=== PATIENT | female | born 1970 | race African-American/Black ===

== ENCOUNTER 2018-09-06 22:44 | Emergency (ER) | payer MEDICAID ==
[~2018-09-06] VITALS: Ht 180.3 cm; Wt 77.0 kg
[2018-09-06] MEDS ORDERED: OLANZAPINE 5MG TABLET ODT PO ONE (23:45)
[2018-09-06] MEDS ORDERED: LORAZEPAM 1MG TABLET PO ONE (23:45)
[2018-09-07 00:19] LABS: CLARITY URINE CLEAR (CLEAR); COLOR URINE YELLOW (YELLOW); KETONES URINE NEGATIVE (NEGATIVE); LEUKOCYTE ESTERASE URINE NEGATIVE (NEGATIVE); NITRITE URINE NEGATIVE (NEGATIVE); OCCULT BLOOD URINE NEGATIVE (NEGATIVE); PROTEIN URINE NEGATIVE (NEGATIVE); SPECIFIC GRAVITY URINE 1.007 (1.005-1.030)
[2018-09-07 00:38] LABS: *AMPHETAMINES SCREEN URINE NEGATIVE (NEGATIVE); *BARBITURATES SCREEN URINE NEGATIVE (NEGATIVE); *BENZODIAZEPINES SCREEN URINE NEGATIVE (NEGATIVE); METHADONE URINE SCREEN NEGATIVE (NEGATIVE); OPIATES URINE SCREEN NEGATIVE (NEGATIVE); PHENCYCLIDINE URINE SCREEN NEGATIVE (NEGATIVE)
[2018-09-07 00:42] LABS: *COCAINE SCREEN URINE PRESUMTIVE POSITIVE (NEGATIVE)
[2018-09-07 00:43] LABS: CANNABINOID URINE SCREEN PRESUMTIVE POSITIVE (NEGATIVE)
[2018-09-07 01:33] LABS: BASOPHILS % 0.7 % (0.0-2.0); EOSINOPHILS % 0.8 % (0.0-5.0); HEMATOCRIT. 33.4 % (36.0-48.0); LYMPHOCYTES % 19.1 % (20.0-50.0); MEAN CORPUSCULAR HEMOGLOBIN 32.3 pg (28.0-32.0); MEAN CORPUSCULAR VOLUME 98.4 fL (81.0-99.0); MONOCYTES % 13.9 % (2.0-8.0); NEUTROPHILS % 65.5 % (40.0-76.0); PLATELET 217 x1000/uL (130-400)
[2018-09-07 01:43] LABS: CHLORIDE 105 mEq/L (98-107)
[2018-09-07 01:48] LABS: ETHANOL BLOOD < 10 mg/dL; HCG SCREEN NEGATIVE
[2018-09-07] MEDS ORDERED: POTASSIUM CHLORIDE 20MEQ TABLET SR PO ONE (02:00)
[2018-09-07 10:52] VITALS: BP 131/83
== END 2018-09-07 13:21 | disposition home or self-care (01) ==
LOC: ER 22:58
DX: F14.129 Cocaine abuse with intoxication, unspecified (principal); F20.9 Schizophrenia, unspecified; R45.851 Suicidal ideations; F32.9 Major depressive disorder, single episode, unspecified; I10 Essential (primary) hypertension; F12.10 Cannabis abuse, uncomplicated; D64.9 Anemia, unspecified; E87.8 Other disorders of electrolyte and fluid balance, not elsewhere classified; J45.909 Unspecified asthma, uncomplicated; Z91.14 Patient's other noncompliance with medication regimen
CPT/HCPCS: 36415; 80048; 80305; 80307; 80329; 81003; 84703; 85025; 99284; G0482; A4315